=== PATIENT | male | born 1970 | race Caucasian/White ===

== ENCOUNTER 2020-03-25 14:07 | Outpatient (CLI) | payer OTHER ==
--- NOTE | 2020-03-25 14:22 | RAD ---
XR Hand Lt 3 View STANDARD: 03/25/2020 12:00 AM CLINICAL INDICATION: Carpal and metacarpal pain of the left hand COMPARISON: None. FINDINGS: Bones: No acute osseous abnormality. Joints: Joint spaces are preserved. Soft Tissue: Soft tissues are normal appearing. IMPRESSION: No acute osseous abnormality..
== END 2020-03-25 14:08 | disposition home or self-care (01) ==
LOC: RAD-FRANK 14:07
PROVIDERS: ATTEND Nurse Practitioner Family
DX: M79.642 Pain in left hand (principal)